=== PATIENT | female | born 1965 | race Caucasian/White ===

== ENCOUNTER 2021-06-18 21:47 | Emergency (ER) | payer MEDICARE, MEDICAID, SELFPAY ==
[2021-06-18 21:45] VITALS: BP 146/75; PULSE 100; RESP 20; TEMP 36.3; O2SAT 95
--- NOTE | 2021-06-18 22:08 | ED.GENADUL_ITS ---
Discharge Plan Disposition Patient Disposition: HOME Condition: Stable Discharge Details Clinical Impression: Major depression Primary Care Provider: Deya Cagle ED Provider: Rosa Enamorado Home Meds and New Rx's Prescriptions: Continued aspirin 81 mg Tablet 81 mg PO DAILY RF: 0 albuterol sulfate 90 mcg/actuation Hfa Aerosol Inhaler 2 puff INHALATION QID PRN PRNRF: 0 fluticasone propionate 110 mcg/actuation Hfa Aerosol Inhaler 1 puff INHALATION BID RF: 0 ferrous sulfate 324 mg (65 mg iron) Tablet,Delayed Release (Dr/Ec) PO DAILY RF: 0 fluticasone propionate 50 mcg/actuation Western,Suspension 1 spray INTRANASAL DAILY RF: 0 sennosides-docusate sodium [Stool Softener-Laxative] 8.6-50 mg Tablet 1 tab-cap PO QHS RF: 0 melatonin 3 mg Tablet 9 mg PO HS PRNRF: 0 magnesium chloride 64 mg Tablet Extended Release 128 mg PO TID RF: 0 simvastatin 40 mg Tablet 40 mg PO HS RF: 0 ascorbic acid (vitamin C) [Vitamin C] 500 mg Tablet PO DAILY RF: 0 ropinirole 2 mg Tablet 2 mg PO TID RF: 0 lidocaine 5 % Adhesive Patch,Medicated 2 patch TOPICAL DAILY RF: 0 lisinopril 5 mg Tablet 5 mg PO DAILY RF: 0 loratadine 10 mg Tablet 10 mg PO DAILY RF: 0 insulin lispro [Humalog KwikPen Insulin] 100 unit/mL Insulin Pen 1 sliding scale dose SUBCUT USEASDIRECTD RF: 0 venlafaxine 75 mg Tablet Extended Release 24hr 225 mg PO QAM RF: 0 Tresiba FlexTouch U-200 200 unit/mL (3 mL) Insulin Pen 110 unit SUBCUT Q12H RF: 0 Trulicity 1.5 mg/0.5 mL Pen Injector 1.5 mg SUBCUT QWEEK RF: 0 Aimovig Autoinjector 140 mg/mL Auto-Injector 140 mg SUBCUT QMONTH RF: 0 metformin 1,000 mg Tablet 1,000 mg PO BID RF: 0 acetaminophen [Tylenol] 325 mg Tablet 650 mg PO QID PRNRF: 0 polyethylene glycol 3350 17 gram Powder In Packet 17 g PO DAILY RF: 0 omeprazole 40 mg Capsule,Delayed Release(Dr/Ec) 40 mg PO DAILY RF: 0 prazosin 5 mg Capsule 5 mg PO HS RF: 0 methocarbamol 750 mg Tablet 750 mg PO QID RF: 0 benzonatate 100 mg Capsule 100 mg PO TID PRNRF: 0 mirtazapine 45 mg Tablet 45 mg PO QHS RF: 0 hydroxyzine HCl 25 mg Tablet 25 mg PO TID PRNRF: 0 lorazepam 1 mg Tablet 1 mg PO QHS RF: 0 lorazepam 1 mg Tablet 1 mg PO PRN MDD 3 PRN (Reason: Anxiety) RF: 0 rizatriptan 5 mg Tablet,Disintegrating 10 mg PO PRN PRN (Reason: Migraine Headache) RF: 0 ondansetron 4 mg Tablet,Disintegrating 4 mg PO Q6H PRNRF: 0 nabumetone 500 mg Tablet 500 mg PO BID RF: 0 pregabalin 50 mg Capsule 50 mg PO TID RF: 0 guaifenesin [Mucinex] 600 mg Tablet Extended Release 12hr PO BID RF: 0 metoprolol succinate 25 mg Capsule,Sprinkle,Er 24hr 25 mg PO DAILY RF: 0 Discharge Instructions Instructions: Depression (ED) Additional Instructions: Please return immediately to the emergency department if you develop any new or worsening symptoms, if your condition does not improve as expected, or if you become otherwise concerned. It is extremely important that you call soon as possible to make an appointment to be seen in follow-up for this visit by your primary care doctor. Referrals: Deya Cagle [Primary Care Provider] - Discharge Data Discharge Date/Time-TO BE ENTERED AT DEPARTURE: 06/21/21 16:12 Medical Decision Making <Ricardo Baldwin MD - Last Filed: 06/22/21 08:53> 56-year-old female presents via EMS from the [facility] in [facility]. She has a history of borderline personality disorder, PTSD for which she states she was admitted to [facility] for 4 months, and was subsequently discharged approximately 5 days ago to the [facility] facility. Patient reports a history of chronic suicidal ideation. This evening she wrapped a charging cord around her neck and a suicidal gesture. EMS reported that they were told [facility] refused the patient and that they were told she was to be brought to [facility] for mental health evaluation. When asked by myself during interview if she still had thoughts of harming her self the patient shrugged her shoulders. She admits she is had some chronic suicidal ideation. Medical screening examination performed including laboratory analysis. <Daryn Wheatley MD - Last Filed: 06/19/21 07:49> Patient sent in for mental health evaluation. See Dr. Baldwin's note for initial presentation and evaluation. Labs are ok and patient seen by mental health. Nursing in contact with patient's guardian and with director of the facility she was discharged to. Mental health needs to get records from [facility] to help sort things out. Patinet's meds reviewed and ordered. Will do fingersticks and sliding scale as needed. No issues overnight. Lab Data Lab results reviewed: Yes I reviewed the patient's lab results. <Jade Cisneros DO - Last Filed: 06/19/21 20:39> 0800 --please see previous provider's notes for initial presentation, exam, plan and course. Case endorsed to continue to monitor while awaiting final disposition. Report is that patient is medically cleared but had been refusing her insulin. Fingerstick glucose 343 this morning. Discussed with pharmacy and recommend insulin aspart sliding scale which has been ordered. Per pharmacy, pt has a h/o resistant hyperglycemia requiring higher doses of insulin. Will discuss with care management and mental health regarding disposition today. 1430 --discussed with wound care physician -- they are still waiting to hear from [facility] director. [facility] will potentially take patient back so we will hold in the ED at this time. Per mental health no plan for inpatient hospitalization. Pt has been cooperative and accepting insulin as directed. 1800 --discussed with Shelli with mental health - she was unable to speak with the director Abebe Jones at [facility] today. Plan is to hold patient in the ED at this time until mental health and care management able to speak with Abebe tomorrow to confirm a safety plan for patient to return to [facility]. Referrals have been placed for patient to be followed by [facility]. Medical Records Medical records reviewed: Yes I reviewed the patient's medical records. <Rosa Enamorado MD - Last Filed: 06/23/21 14:07> Pt signed out to me with plan for discharge to [facility] today. Mental health and seen and evaluated Pt. Pt stable without issue throughout the day. Walking to the bathroom several times with walker without issue. Pt accepted and discharged to [facility] per sign out plan. Medical Records Medical records reviewed: Yes I reviewed the patient's medical records. HPI <Ricardo Baldwin MD - Last Filed: 06/22/21 08:53> General Mode of arrival: ambulatory . Date/Time Provider Initiated Documentation: 06/18/21 21:51 . Limitations to Documentation: no limitations . Information obtained by: patient and EMS . History of Present Illness 56 year old F presents to the emergency department with the chief complaint of Suicidal ideation, chronic, suicide gesture tonight, described as moderate, Patient reports no radiation. Patient started experiencing this month(s) and it has been constant. No relieving factors improve symptom(s), No exacerbating fact ors reported . Patient notes other (No no neck pain, no bruising of the neck, no change to voice or swallowing). Patient did receive the following treatments prior to arrival, none Related Data Home Medications Medication Instructions Recorded Confirmed Aimovig Autoinjector 140 mg SUBCUT QMONTH 06/18/21 06/18/21 Tresiba FlexTouch U-200 110 unit SUBCUT Q12H 06/18/21 06/18/21 Trulicity 1.5 mg SUBCUT QWEEK 06/18/21 06/18/21 albuterol sulfate 2 puff INHALATION QID PRN PRN 06/18/21 06/18/21 ascorbic acid (vitamin C) [Vitamin mg PO DAILY 06/18/21 C] aspirin 81 mg PO DAILY 06/18/21 06/18/21 ferrous sulfate mg PO DAILY 06/18/21 fluticasone propionate 1 puff INHALATION BID 06/18/21 06/18/21 fluticasone propionate 1 spray INTRANASAL DAILY 06/18/21 06/18/21 insulin lispro [Humalog KwikPen 1 sliding scale dose SUBCUT 06/18/21 06/18/21 Insulin] USEASDIRECTD lidocaine 2 patch TOPICAL DAILY 06/18/21 06/18/21 lisinopril 5 mg PO DAILY 06/18/21 06/18/21 loratadine 10 mg PO DAILY 06/18/21 06/18/21 magnesium chloride 128 mg PO TID 06/18/21 06/18/21 melatonin 9 mg PO HS PRN 06/18/21 06/18/21 metformin 1,000 mg PO BID 06/18/21 06/18/21 ropinirole 2 mg PO TID 06/18/21 06/18/21 sennosides-docusate sodium [Stool 1 tab-cap PO QHS 06/18/21 06/18/21 Softener-Laxative] simvastatin 40 mg PO HS 06/18/21 06/18/21 venlafaxine 225 mg PO QAM 06/18/21 06/18/21 acetaminophen [Tylenol] 650 mg PO QID PRN 06/19/21 06/19/21 benzonatate 100 mg PO TID PRN 06/19/21 06/19/21 guaifenesin [Mucinex] mg PO BID 06/19/21 hydroxyzine HCl 25 mg PO TID PRN 06/19/21 06/19/21 lorazepam 1 mg PO PRN PRN MDD 3 06/19/21 06/19/21 lorazepam 1 mg PO QHS 06/19/21 06/19/21 methocarbamol 750 mg PO QID 06/19/21 06/19/21 metoprolol succinate 25 mg PO DAILY 06/19/21 06/19/21 mirtazapine 45 mg PO QHS 06/19/21 06/19/21 nabumetone 500 mg PO BID 06/19/21 06/19/21 omeprazole 40 mg PO DAILY 06/19/21 06/19/21 ondansetron 4 mg PO Q6H PRN 06/19/21 06/19/21 polyethylene glycol 3350 17 g PO DAILY 06/19/21 06/19/21 prazosin 5 mg PO HS 06/19/21 06/19/21 pregabalin 50 mg PO TID 06/19/21 06/19/21 rizatriptan 10 mg PO PRN PRN 06/19/21 06/19/21 Allergies Allergy/AdvReac Type Severity Reaction Status Date / Time No Known Drug Allergies Allergy Unverified 06/18/21 21:54 General Stated Complaint: GenMedical ANABELLE: 3 Review of Systems <Ricardo Baldwin MD - Last Filed: 06/22/21 08:53> Narrative: States she continues to feel depressed, no active plan to harm her self. States that she has been depressed with suicidal ideation for weeks to months. Reports being admitted to [facility] with discharge approximately 5 days ago to the [facility] facility from whence she came tonight. 8 systems reviewed, please see HPI. PFSH <Ricardo Baldwin MD - Last Filed: 06/22/21 08:53> All Active Problems (Updated 06/19/21 @ 20:39 by Jade Cisneros DO) Major depression (Chronic) Medical History (Updated 06/19/21 @ 20:39 by Jade Cisneros DO) Borderline personality disorder Depression Diabetes mellitus Disassociation disorder Post traumatic stress disorder (PTSD) Social History Smoking/Tobacco Use Status: Never Smoking risk assessment performed?: Yes Alcohol Intake: never Substance use type: does not use Additional Social history: pt is a new resident at [facility] in [place]; pt has a history of suicidal ideations and feels like no one wants her. She spent the last 4 [facility] at [facility] Exam <Ricardo Baldwin MD - Last Filed: 06/22/21 08:53> Narrative Exam Narrative: GEN: awake, alert. Pleasant, well groomed, interactive. HEAD: Normocephalic, atraumatic ENT: Mucous membranes moist, oropharynx unremarkable, External ear exam unremarkable EYES: PERRL, EOMI NECK: Full ROM, no CARMEN, no menigismus CHEST/RESP: Nontender, clear to auscultation bilateral, no wheeze/rhonchi/rales CARDIOVASCULAR: RRR, no murmur, rub krissy. 2+ Rad pulse bilateral ABDOMEN: Soft, nontender, no mass. +Bowel sounds EXT: Full ROM, no edema, no rash Neuro: Grossly normal neurologic exam, conversant, interactive. Psych: Speech fluent, thoughts congruent, affect flat Course <Ricardo Baldwin MD - Last Filed: 06/22/21 08:53> Vital Signs Vital signs: Vital Signs Temperature 36.3 C L 06/18/21 21:45 Pulse 100 H 06/18/21 21:45 Respiratory Rate 20 06/18/21 21:45 Blood Pressure 146/75 H 06/18/21 21:45 Pulse Oximetry 95 06/18/21 21:45 Temperature 36.3 C L 06/18/21 21:45 Temperature Source Skin 06/18/21 21:45 Pulse 100 H 06/18/21 21:45 Respiratory Rate 20 06/18/21 21:45 Blood Pressure 146/75 H 06/18/21 21:45 Blood Pressure Position Supine 06/18/21 21:45 Pulse Oximetry 95 06/18/21 21:45 Oxygen Delivery Method Room Air 06/18/21 21:45 Oxygen Flow Rate 0 06/18/21 21:45 Pain Level 6 06/18/21 21:45 Sign Out <Ricardo Baldwin MD - Last Filed: 06/22/21 08:53> Sign Out Data: Sign Out Comment: Medical screeing, Eval for SI Last updated by Ricardo Baldwin MD at 06/18/21 22:26 Sign Out Comment: pending re-eval by mental health Last updated by Daryn Wheatley MD at 06/19/21 07:53 Sign Out Comment: Patient has chronic resistant hyperglycemia but otherwise medically cleared. No plan for seeking inpatient hospitalization at this time. Will potentially go back to [facility] tomorrow once mental health and care management able to discuss with the director there tomorrow to establish a safety plan to return there. Last updated by Jade Cisneros DO at 06/19/21 19:35 Sign Out Comment: patient stable throughout the night. walking boot and walker given for chronic heel pain. Last updated by Trevor Anne DO at 06/20/21 07:42 Sign Out Comment: PLan for DC in AM, stable thru day shift Last updated by Ricardo Baldwin MD at 06/20/21 18:42 Sign Out Comment: Plan for discharge this morning. Stable. veterinary hospital shift lead. Last updated by Trevor Anne DO at 06/21/21 07:28
[2021-06-18 22:14] VITALS: RESP 16
[2021-06-18 22:29] LABS: Abs Immature Grans 0.06 10^3/uL (0.0-0.06); Absolute Basophil Count 0.04 10^3/uL (0.0-0.2); Absolute Eosinophil Count 0.18 10^3/uL (0.0-0.7); Absolute Lymphocyte Count 2.02 10^3/uL (1.2-3.4); Absolute Monocyte Count 0.74 10^3/uL (0.1-0.8); Absolute Neutrophil Count 5.06 10^3/uL (1.2-6.7); Basophils % 0.5; Eosinophils % 2.2; HCT 37.6 % (36.0-46.0); HGB 12.5 g/dL (11.2-15.7); Immature Grans % 0.7; Lymphocytes % 24.9; MCH 28.5 pg (27.0-33.0); MCHC 33.2 % (32.0-36.0); MCV 85.8 fL (80-95); MPV 8.6 fL (8.0-11.0); Monocytes % 9.1; Neutrophils % 62.6; Nucleated RBC 0 %; Platelet Count 269 10^3/uL (130-400); RBC 4.38 10^6/uL (3.93-5.22); RDW-SD 40.1 fL
[2021-06-18 22:33] LABS: Source Nasal/Nares
[2021-06-18 22:49] LABS: ALT 27 U/L (14-59); AST 18 U/L (15-37); Albumin 3.6 g/dL (3.4-5.0); Alkaline Phosphatase 117 U/L (46-116); Anion Gap 8.4 mmol/L (3-11); BUN 22 mg/dL (7-18); Bilirubin, Total 0.2 mg/dL (0.2-1.0); CO2 27.6 mmol/L (21.0-32.0); Calcium 9.2 mg/dL (8.5-10.1); Chloride 98 mmol/L (98-107); Estimated GFR 57.78 (mL/min/1.73m2); Glucose 248 mg/dL (74-106); Potassium 3.7 mmol/L (3.5-5.1); Sodium 134 mmol/L (136-145); TSH (W/Ref FT4) 0.91 uIU/mL (0.36-3.74); Total Protein 7.6 g/dL (6.4-8.2)
[2021-06-18 22:50] LABS: ETHANOL BLOOD < 3.0 mg/dL (<10)
[2021-06-18 22:52] LABS: Acetaminophen < 2 ug/mL (10-30); Salicylate < 2.8 mg/dL (<2.8)
--- NOTE | 2021-06-19 00:25 | NUR.NOTE ---
Nursing Note: Pt arrives via EMS after being told they could not go to [facility] (per EMS) upset and quiet Pt is slowly opening up. This RN called [facility] to get report on pt since we had not hand off. Pt Therapeutic Recreation Leader reports that pt was refusing insulin and noncompliant with cares today and that she then locked herself in room and stated that she wants to kill herself. Further reports that pt is accusing staff also of not giving meds, which is untrue. Called [facility] Security Administrator Abebe ([phone]), He reports today has been stressful. At 4 pm she refused to take her insulin and check her blood sugar. They called 911 and EMS came. Pt still refused cares. They then called guardian who gave consent for blood sugar and insulin. Pt was then upset and found a pair of scissors from newly dropped off belongings from previous facility and locked herself in room. Security Administrator then broke down door to get in room and get scissors away from pt. Abebe states they are concerned for pts mental state, suicidal ideations and refusing meds. He is willing to take her back to their facility, BUT there have to be plans and services in place to help handle these behaviors. Pt's legal guardian Isha Garcia called to advise pt was here and give consent for treatment. This nurse also talked to her at length. Isha reports that pt's refusing to take insulin is her way of gaining control of situations when she is scared or feels threatened. Isha reports that pt displays warning signs for increasing agitation and behavior concerns - when she picks at her skin, she appears to talk to herself or looks around the room. (All of these behaviors pt has demonstrated since arrival). Pt also has a history of Disassociation if she cannot get behaviors in control that can last from a few seconds to days. This nurse spoke with Ricarda from Mental Health to tell her of above conversations. Ricarda will talk with guardian tomorrow and then also work with Care Management and Abebe to coordinate cares and services pt would need to return to [facility].
--- NOTE | 2021-06-19 00:32 | PDOC.MHCN_ITS ---
Date of service: 06/19/21 Time of Service: 00:32 Mental Health Crisis Note Presenting Issue How did you arrive at the ED and why did you come: Client arrived at [facility] ED via [facility] after [facility] refused to take client. Client presents with persistent SI, but states that she experiences this everyday. Precipitating Factors Client states that she is currently having SI, denies HI. Disposition BEHAVIOR: Client is laying down on hospital bed with paper hospital top on and shorts. She is a full figure woman with mahan hair. At first interaction she appears to be guarded, but opens up to this functional tester typewriters throughout assessment. She states: I don't care how much family or friends I have that care about me I think they would all be better off without me, I don't belong anywhere. She is tearful throughout assessment. EYE CONTACT: Client makes minimal eye contact as she is having cramping in both of her feet, but when answering some questions she attempts to look at this functional tester typewriters. MOOD: Client mood appears depressed and hopeless. AFFECT: Flat Affect APPETITE: Client states that she has been overeating, although she did not eat dinner tonight. SLEEP(trouble falling/staying asleep: Client states that she has not been sleeping, she is averaging about 4 hours of interrupted sleep nightly. She states that she did not get any sleep last night. Plan Client will remain at [facility] ED tonight. Client will be re-screened by [facility] in the morning and a plan for her to return to [facility] will be formulated with [facility] and care management. Client has a guardian that needs to be called to fill out intake paperwork in the morning and referrals were be made for therapy, case management, and a psychiatrist through [facility]. Signature Clinician's Name/Title: Ricarda Ga, [facility] Emergency Clinician
[2021-06-19 00:59] LABS: Bilirubin Negative (Negative); Blood Negative (Negative); Clarity Cloudy (Clear); Glucose 500 mg/dL (Negative); Ketones Negative (Negative); Leukocyte Esterase Trace (Negative); Nitrite Negative (Negative); Specific Gravity 1.025 (1.005-1.025); Urobilinogen 0.2 EU/dL (Up TO 0.2)
[2021-06-19] MEDS: Prazosin 5 MG CAP PO ×2 (01:00→21:59)
[2021-06-19] MEDS: LORazepam 1 MG TAB PO ×3 (01:00→15:48)
[2021-06-19] MEDS: Melatonin 3 MG TAB 9 MG PO ×2 (01:00→21:59)
[2021-06-19] MEDS: Mirtazapine 15 MG TAB 45 MG PO ×2 (01:01→22:00)
[2021-06-19 01:07] LABS: Bacteria Packed HPF (Negative); C & S Indicated? Yes; Casts Negative LPF (Negative); Crystals Negative HPF (Negative); Epithelial Cells Few HPF (Negative); Mucus Negative (Negative); WBC 20-50 HPF (0-5)
[2021-06-19 01:12] LABS: *AMPHETAMINES SCREEN URINE Negative (Negative); *BARBITURATES SCREEN URINE Negative (Negative); *BENZODIAZEPINES SCREEN URINE Negative (Negative); Cannabinoids THC Negative (Negative); Cocaine Screen,Urine Negative (Negative); METHADONE URINE SCREEN Negative (Negative); OPIATES URINE SCREEN Negative (Negative); Tricyclic Antidepressants Negative (Negative)
[2021-06-19] MEDS: Fosfomycin Tromethamine 3 GM PACKET PO (02:01)
[2021-06-19] MEDS: rOPINIRole 0.5 MG TAB 2 MG PO (03:10)
[2021-06-19] MEDS: Nabumetone 500 MG TAB PO ×2 (03:10→19:51)
[2021-06-19] MEDS: Pregabalin 50 MG CAP PO ×3 (03:10→19:51)
[2021-06-19] MEDS: Methocarbamol 750 MG TAB PO ×4 (03:11→19:51)
[2021-06-19 07:09] VITALS: BP 114/76; PULSE 103; TEMP 36.6; O2SAT 93
[2021-06-19] MEDS: Omeprazole 20 MG CAPCR 40 MG PO (07:20)
[2021-06-19] MEDS: metFORMIN 500 MG TAB 1000 MG PO ×2 (07:20→16:35)
[2021-06-19] MEDS: Lisinopril 5 MG TAB PO (08:20)
[2021-06-19] MEDS: Aspirin E.C. 81 MG TABEC PO (08:20)
[2021-06-19] MEDS: Metoprolol CR 25 MG TABCR PO (08:20)
[2021-06-19] MEDS: Venlafaxine 150 MG CAPCR PO (08:21)
[2021-06-19] MEDS: Insulin Aspart 300 UNITS/3 ML PEN SC ×4 (08:53→21:56)
[2021-06-19] MEDS: rOPINIRole 1 MG TAB 2 MG PO ×3 (09:20→19:51)
[2021-06-19 10:03] LABS: COVID-19 PCR Negative (Negative)
--- NOTE | 2021-06-19 16:50 | CMPROGNOTE_ITS ---
- If Service Date Differs Date of service: 06/19/21 Time of Service: 16:50 Care Management Progress Note Josy was brought to [facility] ED from [facility] because of suicidal ideation. She had been discharged to [facility] from [facility] about 5 days ago after a 4 month admission for similar complaints/thoughts. Per Josy and per her mental health providers in the community, this is her baseline. She chronically has thoughts of suicide but has no plan. After evaluation by [facility] crisis screener Shelli today, the decision was made to have her return to [facility] on a Safety Plan. The director was unavailable today but efforts continue to reach him and to have Josy return to [facility]. If this is not possible today, it is likely she will return tomorrow. - Status Status: Interim - Reason for Wait Reason for Wait: Community Placement
[2021-06-19] MEDS: Simvastatin 40 MG TAB PO (19:52)
[2021-06-19 21:05] VITALS: BP 144/88; PULSE 93; RESP 18; TEMP 37; O2SAT 96
[2021-06-20] MEDS: Acetaminophen 500 MG TAB 1000 MG PO ×2 (02:00→20:38)
[2021-06-20] MEDS: LORazepam 1 MG TAB PO (02:00)
[2021-06-20] MEDS: Omeprazole 20 MG CAPCR 40 MG PO (08:09)
[2021-06-20] MEDS: metFORMIN 500 MG TAB 1000 MG PO ×2 (08:10→17:11)
[2021-06-20] MEDS: Aspirin E.C. 81 MG TABEC PO (08:10)
[2021-06-20] MEDS: Lisinopril 5 MG TAB PO (08:10)
[2021-06-20] MEDS: Venlafaxine 150 MG CAPCR PO (08:11)
[2021-06-20] MEDS: rOPINIRole 1 MG TAB 2 MG PO ×3 (08:11→20:34)
[2021-06-20] MEDS: Pregabalin 50 MG CAP PO ×3 (08:12→20:42)
[2021-06-20] MEDS: Metoprolol CR 25 MG TABCR PO (08:12)
[2021-06-20] MEDS: Methocarbamol 750 MG TAB PO ×4 (08:12→20:35)
[2021-06-20] MEDS: Insulin Aspart 300 UNITS/3 ML PEN SC ×4 (08:14→22:34)
[2021-06-20 08:33] VITALS: BP 107/73; PULSE 101; TEMP 36.5; O2SAT 92
[2021-06-20] MEDS: Nabumetone 500 MG TAB PO ×2 (10:20→20:38)
[2021-06-20] MEDS: Polyethylene Glycol 3350 17 GM PACKET PO (12:47)
--- NOTE | 2021-06-20 17:20 | PDOC.CMSAFED ---
- If Service Date Differs Date of service: 06/20/21 Time of Service: 17:20 Care Management Safety Plan Status: Interim - Reason for Wait Reason for Wait: Community Placement Josy was brought to the ED by EMS from [facility]. She had been making suicidal comments and was found with a cord around her neck. 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 She reportedly was discharged from [facility] after a 4 month psychiatric hospitalization about a week ago and was sent to [facility]. Per her history and information from [facility], Josy is chronically suicidal and is at her baseline. The plan is for her to return to [facility] tomorrow (Monday06/21/21) when SOFTWARE PUBLISHER services can be established for her at [facility]. CM facilitated an interdepartmental huddle with [facility] screener for safety planning considerations and met with patient to review [facility] policy and safety plan, establish individual wishes for treatment and maintain patient rights. A huddle was conducted around 12:30 with Jese, Nursing lunchroom food service supervisor, Micheline GOOD, Dr. Baldwin and NATALYA Cordon. In the interim; please note safety plan below to guide patient care while awaiting transfer back to [facility]: SAFETY PLAN: 1. Will remain on suicide precautions and in paper clothes. 2. Will remain in room under direct supervision of one-on-one staff at all times provided by ANIKA, DATA CENTER MANAGER sample taker operator. 3. May have paper cups, plates, finger foods as well as a cardboard spoon with which to eat meals. 4. Follow [facility] Management of the Admitted Behavioral Health Patient policy. 5. Personal care: May shower with supervision at nursing discretion. 6. Bathroom privileges: with escort in ED. 6. May wear necklace.No personal belongings at this time; per RN discretion. 7. No visitors at this time. 8. Phone contact limited to guardian who is also a friend. 9. Activities: Music tablet per RN discretion. May also have soft items such as books, coloring materials etc at nursing discretion. 10. Due to VOLUNTARY status, if patient wishes to leave [facility], staff will contact [facility] Crisis Screener ([phone]) and On-Call Cam Milling Machine Operator ([phone]) as soon as possible. In the event of elopement, notify [facility] Police ([phone]). If deemed appropriate for inpatient psychiatric care, safety plan will be established with patient, and care team, to adhere to patient goals, identify restrictions based on behavioral status, address nutrition, and determine allowed personal belongings, tools for hygiene and personal care. As well plan will determine level of activity including ambulation, level of supervision, visitors, and determine privileges based on level of acuity, behaviors and level of engagement by patient.
--- NOTE | 2021-06-20 18:48 | NUR.NOTE ---
Nursing Note: Report given to Sruthi GOOD
[2021-06-20] MEDS: Simvastatin 40 MG TAB PO (20:39)
[2021-06-20 20:55] VITALS: BP 151/81; PULSE 88; RESP 18; TEMP 36.9; O2SAT 93
[2021-06-20] MEDS: Mirtazapine 15 MG TAB 45 MG PO (22:35)
[2021-06-20] MEDS: Melatonin 3 MG TAB 9 MG PO (22:35)
[2021-06-20] MEDS: Prazosin 5 MG CAP PO (22:36)
[2021-06-21] MEDS: Polyethylene Glycol 3350 17 GM PACKET PO (08:18)
[2021-06-21] MEDS: Omeprazole 20 MG CAPCR 40 MG PO (08:19)
[2021-06-21] MEDS: Aspirin E.C. 81 MG TABEC PO (08:19)
[2021-06-21] MEDS: Pregabalin 50 MG CAP PO (08:19)
[2021-06-21] MEDS: Methocarbamol 750 MG TAB PO ×3 (08:19→15:56)
[2021-06-21] MEDS: metFORMIN 500 MG TAB 1000 MG PO (08:19)
[2021-06-21] MEDS: Lisinopril 5 MG TAB PO (08:19)
[2021-06-21] MEDS: Nabumetone 500 MG TAB PO (08:20)
[2021-06-21] MEDS: Venlafaxine 150 MG CAPCR PO (08:20)
[2021-06-21] MEDS: rOPINIRole 1 MG TAB 2 MG PO (08:20)
[2021-06-21] MEDS: Insulin Aspart 300 UNITS/3 ML PEN SC ×2 (08:20→12:30)
[2021-06-21] MEDS: Metoprolol CR 25 MG TABCR PO (08:20)
[2021-06-21 08:50] VITALS: BP 135/92; PULSE 91; TEMP 36.5; O2SAT 95
[2021-06-21] MEDS: Insulin Glargine 100 UNITS/ML UNIT 88 UNITS SC (10:21)
[2021-06-21] MEDS: LORazepam 1 MG TAB PO (12:51)
--- NOTE | 2021-06-21 15:45 | CMPROGNOTE_ITS ---
- If Service Date Differs Date of service: 06/21/21 Time of Service: 15:45 Care Management Progress Note DISCHARGE PLAN: Josy is cleared by [facility] CUSTOM DECORATING CONSULTANT Program to return to [facility]. She will follow up with her PCP, [facility] and plan of care as directed. She is transported to [facility] by [facility].
--- NOTE | 2021-06-21 15:45 | PDOC.ERCMPRO ---
- If Service Date Differs Date of service: 06/21/21 Time of Service: 15:45 Care Management Progress Note DISCHARGE PLAN: Josy is cleared by [facility] KNITTING SUPERVISOR Program to return to [facility]. She will follow up with her PCP, [facility] and plan of care as directed. She is transported to [facility] by [facility].
--- NOTE | 2021-06-21 16:02 | NUR.NOTE ---
Nursing Note:Pt dressed, medicated per EMAR, transportation arranged for return to [facility], hemodialysis patient care specialist in to speak w/pt as requested by pt.
[2021-06-21 16:03] VITALS: BP 118/78; PULSE 101; TEMP 36.1; O2SAT 94
== END 2021-06-21 16:12 | disposition home or self-care (01) ==
PROVIDERS: Emergency Medicine; Emergency Provider Student in an Organized Health Care Education/Training Program; PCP Student in an Organized Health Care Education/Training Program
DX: F32.A Depression, unspecified (principal); E11.9 Type 2 diabetes mellitus without complications; R45.851 Suicidal ideations; Z79.899 Other long term (current) drug therapy
CPT/HCPCS: 36415; 36416; 80053; 80307; 82962; 87077; 87635; 99284; 99285; 80320; 80329; 81003; 81015; 84443; 85025; 87086; 87186; J1815; J3490

== ENCOUNTER 2021-09-05 18:51 | Emergency (ER) | payer MEDICARE, MEDICAID, SELFPAY ==
[2021-09-05 18:34] VITALS: BP 126/81; PULSE 99; RESP 16; TEMP 36.2; O2SAT 95
--- NOTE | 2021-09-05 18:50 | ED.GENADUL_ITS ---
Discharge Plan Disposition Patient Disposition: OTHER Condition: Improving Discharge Details Clinical Impression: Chronic depression, Borderline personality disorder Primary Care Provider: Deya Cagle ED Provider: Ricardo Baldwin Home Meds and New Rx's Prescriptions: Continued aspirin 81 mg Tablet 81 mg PO DAILY 0RF albuterol sulfate 90 mcg/actuation Hfa Aerosol Inhaler 2 puff INHALATION QID PRN PRN0RF fluticasone propionate 110 mcg/actuation Hfa Aerosol Inhaler 1 puff INHALATION BID 0RF ferrous sulfate 324 mg (65 mg iron) Tablet,Delayed Release (Dr/Ec) 324 mg PO DAILY 0RF fluticasone propionate 50 mcg/actuation [place],Suspension 1 spray INTRANASAL DAILY 0RF melatonin 3 mg Tablet 9 mg PO HS PRN0RF magnesium chloride 64 mg Tablet Extended Release 128 mg PO TID 0RF ascorbic acid (vitamin C) [Vitamin C] 500 mg Tablet 500 mg PO DAILY 0RF ropinirole 2 mg Tablet 2 mg PO TID 0RF lidocaine 5 % Adhesive Patch,Medicated 2 patch TOPICAL DAILY 0RF lisinopril 5 mg Tablet 5 mg PO DAILY 0RF loratadine 10 mg Tablet 10 mg PO DAILY 0RF venlafaxine 75 mg Tablet Extended Release 24hr 225 mg PO QAM 0RF Trulicity 1.5 mg/0.5 mL Pen Injector 1.5 mg SUBCUT QWEEK 0RF Aimovig Autoinjector 140 mg/mL Auto-Injector 140 mg SUBCUT QMONTH 0RF metformin 1,000 mg Tablet 1,000 mg PO BID 0RF acetaminophen [Tylenol] 325 mg Tablet 650 mg PO QID PRN0RF polyethylene glycol 3350 17 gram Powder In Packet 17 g PO DAILY 0RF omeprazole 40 mg Capsule,Delayed Release(Dr/Ec) 40 mg PO DAILY 0RF methocarbamol 750 mg Tablet 750 mg PO QID PRN0RF mirtazapine 45 mg Tablet 45 mg PO QHS 0RF hydroxyzine HCl 25 mg Tablet 25 mg PO TID PRN0RF lorazepam 1 mg Tablet 1 mg PO QHS 0RF lorazepam 1 mg Tablet 1 mg PO BID PRN MDD 3 PRN (Reason: Anxiety) 0RF ondansetron 4 mg Tablet,Disintegrating 4 mg PO Q6H PRN0RF nabumetone 500 mg Tablet 500 mg PO BID 0RF pregabalin 50 mg Capsule 50 mg PO TID 0RF guaifenesin [Mucinex] 600 mg Tablet Extended Release 12hr 600 mg PO BID 0RF metoprolol succinate 25 mg Capsule,Sprinkle,Er 24hr 25 mg PO DAILY 0RF atorvastatin 40 mg Tablet 40 mg PO DAILY 0RF sennosides-docusate sodium [Senexon-S] 8.6-50 mg Tablet 1 tab PO DAILY 0RF prazosin 5 mg Capsule 5 mg PO QHS 0RF Humulin R U-500 (Conc) Kwikpen 500 unit/mL (3 mL) Insulin Pen 60 unit SUBCUT QACLUNCH 0RF Rx Instructions: 30 min before lunch Humulin R U-500 (Conc) Insulin 500 unit/mL Solution 65 unit subcut QACDINNER 0RF Rx Instructions: 30 min before juliane diclofenac sodium 1 % Gel 2 g TOPICAL QID PRN (Reason: Pain) 0RF Rx Instructions: apply to single elbow, wrist or hand; for hand includes palm/fingers/back of hand insulin regular hum U-500 conc 500 unit/mL (3 mL) Insulin Pen 80 unit SUBCUT QACBREAK 0RF rizatriptan 10 mg Tablet 0 mg PO .COMPLEX 0RF Rx Instructions: take 1 tab at onset of headache; if no relief may repeat 1 tab after at least 2 hrs; limit to 2 days/week Discharge Instructions Additional Instructions: Your case was discussed with your ACTUARIAL TECHNICIAN team by our care managers. Your case was discussed with administration from the [facility] by our care managers. You are medically stable for discharge from the emergency department. Continue your routine medications. Please follow-up with your ACTUARIAL TECHNICIAN team tomorrow. Discharge Data Discharge Date/Time-TO BE ENTERED AT DEPARTURE: 09/06/21 18:13 Medical Decision Making 56-year-old female with medical history of borderline personality disorder, depression, diabetes mellitus insulin-dependent, association disorder and PTSD presents to the ER with a chief complaint of suicidal ideation and gestures. Patient was at [facility] prior to arrival with reports that she attempted to wrap a towel around her neck, cut her right wrist with a fork katlyn. Upon arrival patient states to me that I was trying to reopen an old wound that I had here. She does state she broke off a piece of a plastic fork and c ut myself Patient does endorse any intent to harm herself. Only complains of pain in her right wrist. There is a bandage in place upon arrival bleeding is controlled. She has no ligation jsoé noted on her neck. No chest abdomen back pain. She does report some vaginal itching and discharge. She reports that this is chronic but has returned probably due to my diabetes . Per EMS patient calm and cooperative in route, 20-gauge IV left AC started by EMS blood was drawn. She did receive a small amount of fluids prior to arrival IV. BGL prior to arrival was 343. Psychiatric evaluation mental health orders placed. Patient's room is in line of sight of the nurses station. Patient placed in paper scrubs. CBC within normal limits, CMP shows anion gap 12.0, glucose 290, alk phos 119 TSH within normal limits, urinalysis shows trace ketones, positive nitrite trace leukocyte 20-50 WBCs, moderate epithelial, many bacteria, 500 glucose culture is pending at this time. Salicylate less than 2.8 urine drug screen negative, acetaminophen less than 2 ethyl alcohol less than 3.0. Cephalexin 500 mg ordered p.o. twice daily. Will order patient daily p.m. medications 2125: Spoke with Hortencia with [facility] discussed patient case with her. She will set up zoom telehealth meeting. Discussed plan with Hortencia ACTUARIAL TECHNICIAN provider who will be seeking inpatient voluntary psychiatric placement. 2308: Care is to be handed off to ER attending Gil Anne DO pending observation and voluntary psych placement. 09/06/21 0730, Rosa Enamorado: Patient signed out to me at time of shift change, pending voluntary inpatient placement. Patient had elevated blood sugar in the morning, patient's home insulin regimen ordered, BMP ordered. No DKA. Blood sugar improved with insulin. Patient without complaint, no other issues during shift. Patient signed out to Dr. Baldwin at time of shift change with placement pending. Addendum: August 06 4:50 PM. Discussed with care management. Patient has long standing suicidal ideation for which she is followed by community resource team based out [facility]. Case discussed with her ACTUARIAL TECHNICIAN agent Estefania Weiner as well as with the [facility] facility. Patient has been cleared for return back to [facility]. She will need to seek further outpatient psych care in her own catchment area. Medical Records Medical records reviewed: Yes I reviewed the patient's medical records. HPI General Mode of arrival: EMS . Date/Time Provider Initiated Documentation: 09/05/21 19:34 . Limitations to Documentation: no limitations . Information obtained by: patient, RN/MD ([facility] Staff Report ), EMS, RN notes reviewed and old records reviewed . HPI Narrative: 56-year-old female with medical history of borderline personality disorder, depression, diabetes mellitus insulin-dependent, association disorder and PTSD presents to the ER with a chief complaint of suicidal ideation and gestures. Patient was at [facility] prior to arrival with reports that she attempted to wrap a towel around her neck, cut her right wrist with a fork katlyn. Upon arrival patient states to me that I was trying to reopen an old wound that I had here. Patient does endorse any intent to harm herself. Only complains of pain in her right wrist. There is a bandage in place upon arrival bleeding is controlled. She has no ligation josé noted on her neck. No chest abdomen back pain. She does report some vaginal itching and discharge. She reports that this is chronic but has returned probably due to my diabetes . Per EMS patient calm and cooperative in route, 20-gauge IV left AC started by EMS blood was drawn. She did receive a small amount of fluids prior to arrival IV. BGL prior to arrival was 343. Related Data Home Medications Medication Instructions Recorded Confirmed albuterol sulfate 90 mcg/actuation 2 puff INHALATION QID PRN PRN 06/18/21 09/05/21 aerosol inhaler ascorbic acid (vitamin C) 500 mg 500 mg PO DAILY 06/18/21 09/05/21 tablet (Vitamin C) aspirin 81 mg tablet 81 mg PO DAILY 06/18/21 09/05/21 dulaglutide 1.5 mg/0.5 mL 1.5 mg SUBCUT QWEEK 06/18/21 09/05/21 subcutaneous pen injector (Trulicity) erenumab-aooe 140 mg/mL 140 mg SUBCUT QMONTH 06/18/21 09/05/21 subcutaneous auto-injector (Aimovig Autoinjector) ferrous sulfate 324 mg (65 mg 324 mg PO DAILY 06/18/21 09/05/21 iron) tablet,delayed release fluticasone propionate 110 1 puff INHALATION BID 06/18/21 09/05/21 mcg/actuation HFA aerosol inhaler fluticasone propionate 50 1 spray INTRANASAL DAILY 06/18/21 09/05/21 mcg/actuation nasal spray,suspension lidocaine 5 % topical patch 2 patch TOPICAL DAILY 06/18/21 09/05/21 lisinopril 5 mg tablet 5 mg PO DAILY 06/18/21 09/05/21 loratadine 10 mg tablet 10 mg PO DAILY 06/18/21 09/05/21 magnesium chloride 64 mg 128 mg PO TID 06/18/21 09/05/21 tablet,extended release melatonin 3 mg tablet 9 mg PO HS PRN 06/18/21 09/05/21 metformin 1,000 mg tablet 1,000 mg PO BID 06/18/21 09/05/21 ropinirole 2 mg tablet 2 mg PO TID 06/18/21 09/05/21 venlafaxine 75 mg tablet,extended 225 mg PO QAM 06/18/21 09/05/21 release 24 hr acetaminophen 325 mg tablet 650 mg PO QID PRN 06/19/21 09/05/21 (Tylenol) guaifenesin 600 mg tablet, 600 mg PO BID 06/19/21 09/05/21 extended release 12 hr (Mucinex) hydroxyzine HCl 25 mg tablet 25 mg PO TID PRN 06/19/21 09/05/21 lorazepam 1 mg tablet 1 mg PO BID PRN PRN MDD 3 06/19/21 09/06/21 lorazepam 1 mg tablet 1 mg PO QHS 06/19/21 09/05/21 methocarbamol 750 mg tablet 750 mg PO QID PRN 06/19/21 09/05/21 metoprolol succinate 25 mg capsule 25 mg PO DAILY 06/19/21 09/05/21 sprinkle, ext. release 24 hr mirtazapine 45 mg tablet 45 mg PO QHS 06/19/21 09/05/21 nabumetone 500 mg tablet 500 mg PO BID 06/19/21 09/05/21 omeprazole 40 mg capsule,delayed 40 mg PO DAILY 06/19/21 09/05/21 release ondansetron 4 mg disintegrating 4 mg PO Q6H PRN 06/19/21 09/05/21 tablet polyethylene glycol 3350 17 gram 17 g PO DAILY 06/19/21 09/05/21 oral powder packet pregabalin 50 mg capsule 50 mg PO TID 06/19/21 09/05/21 atorvastatin 40 mg tablet 40 mg PO DAILY 09/05/21 09/05/21 diclofenac sodium 1 % topical gel 2 g TOPICAL QID PRN 09/05/21 09/05/21 insulin regular hum U-500 conc 60 unit SUBCUT QACLUNCH 09/05/21 09/06/21 (Humulin R U-500 (Conc) Insulin Kwikpen) insulin regular hum U-500 conc 500 65 unit SUBCUT QACDINNER 09/05/21 09/06/21 unit/mL subcutaneous soln (Humulin R U-500 (Concentrated) Insulin) prazosin 5 mg capsule 5 mg PO QHS 09/05/21 09/05/21 sennosides 8.6 mg-docusate sodium 1 tab PO DAILY 09/05/21 09/05/21 50 mg tablet (Senexon-S) insulin regular hum U-500 conc 80 unit SUBCUT QACBREAK 09/06/21 09/06/21 rizatriptan 10 mg tablet 0 mg PO .COMPLEX 09/06/21 09/06/21 Allergies Allergy/AdvReac Type Severity Reaction Status Date / Time No Known Drug Allergies Allergy Unverified 06/18/21 21:54 General Stated Complaint: PsychEval ANABELLE: 2 Review of Systems All systems reviewed & are unremarkable except as noted in HPI and below Musculoskeletal Musculoskeletal: Reports as per HPI Integumentary/Breasts Skin/Breast: Reports as per HPI and Reports wounds (Right wrist) Psychiatric Psychiatric: Reports as per HPI, Reports hopelessness, Reports mood swings, Reports suicidal ideation and Reports other (Patient states she has episodes of dissociative disorder. ) PFSH All Active Problems (Updated 09/06/21 @ 16:53 by Ricardo Baldwin MD) Chronic depression (Acute) Borderline personality disorder (Acute) Medical History Borderline personality disorder Depression Diabetes mellitus Disassociation disorder Post traumatic stress disorder (PTSD) Social History Smoking/Tobacco Use Status: Never Smoking risk assessment performed?: Yes Alcohol Intake: never Substance use type: does not use Additional Social history: pt is a new resident at [facility] in [place]; pt has a history of suicidal ideations and feels like no one wants her. She spent the last 4 [place] at [facility] Exam Narrative Exam Narrative: Constitutional: Alert and oriented x3. Appears stated age. Obese body habitus. Head: Normocephalic, no trauma. Eyes: Pupils PERRL, Red reflex noted, EOM's intact. Eyelids symmetrical without lesions, discharge, or swelling. ENT: Bilateral TM's WNL, External ear normal to inspection, no mastoid TTP, swelling, or erythema, Nasal turbinates WNL, no nasal discharge. Normal dentition, Posterior pharynx WNL, no exudate. Chest: RRR, Normal S1, S2, distal pulses intact. Resp: Lungs clear to auscultation bilaterally, no wheezes, rales, or rhonchi. Abdomen: Soft, non-distended, Normoactive bowel sounds all 4 quads. Musculoskeletal: Normal gait, 5/5 strength to all four extremities. Skin: Capillary refill less than 2 sec. acute on chronic laceration noted to her right inner wrist measuring approximate 4 cm in length, no bleeding noted on initial exam. Laceration was treated with bacitracin and a Band-Aid. No ligation josé noted to her neck. no questionable bruises or other wounds noted on exam. Neurologic: Cranial nerves II-XII intact. Alert and oriented x 3. Motor: No deficits noted. Sensory: Intact bilaterally all 4 extremities. Reflexes: DTR's intact bilaterally.. Hematologic/Lymphatic: No ecchymosis, no lymphadenopathy. Psych Appearance: well kempt Speech and Movement: speech and movement normal Affect: sad and blunted Attitude: cooperative Thought Process: normal Thought Content: compulsions and suicidality (Wrapped towel around her neck, attempted to cut wrist,) Insight: limited Judgment: limited Course Vital Signs Vital signs: Vital Signs Temperature 36.2 C L 09/05/21 18:34 Pulse 99 H 09/05/21 18:34 Respiratory Rate 16 09/05/21 18:34 Blood Pressure 126/81 09/05/21 18:34 Pulse Oximetry 95 09/05/21 18:34 Temperature 36.2 C L 09/05/21 18:34 Temperature Source Skin 09/05/21 18:34 Pulse 99 H 09/05/21 18:34 Respiratory Rate 16 09/05/21 18:34 Blood Pressure 126/81 09/05/21 18:34 Blood Pressure Position Sitting 09/05/21 18:34 Pulse Oximetry 95 09/05/21 18:34 Oxygen Delivery Method Room Air 09/05/21 18:34 Oxygen Flow Rate 0 09/05/21 18:34 Pain Level 6 09/05/21 18:34 Sign Out Sign Out Data: Sign Out Comment: Suicidal gestures. Hx of Borderline Personality disorder, Disassociative disorder, PTSD, IDDM from [facility], awaiting voluntary placement. Re-opened right wrist wound, Reportedly wrapped a towel around neck, Has remained calm and cooperative. ACTUARIAL TECHNICIAN patient, sees [facility]. Last updated by Candy Valdes at 09/05/21 22:58 Sign Out Comment: Suicidal ideations, personality disorder, stable throughout the night. No interventions needed. Pending reassessment by mental health. Last updated by Trevor Anne DO at 09/06/21 06:24 Sign Out Comment: Patient signed out to Dr. Baldwin at time of shift change with voluntary placement pending. Last updated by Rosa Enamorado MD at 09/06/21 15:41
[2021-09-05 19:36] LABS: Abs Immature Grans 0.04 10^3/uL (0.0-0.06); Absolute Basophil Count 0.04 10^3/uL (0.0-0.2); Absolute Eosinophil Count 0.15 10^3/uL (0.0-0.7); Absolute Lymphocyte Count 1.47 10^3/uL (1.2-3.4); Absolute Monocyte Count 0.75 10^3/uL (0.1-0.8); Absolute Neutrophil Count 5.12 10^3/uL (1.2-6.7); Basophils % 0.5; HCT 40.1 % (36.0-46.0); Immature Grans % 0.5; Lymphocytes % 19.4; MCH 28.2 pg (27.0-33.0); MCHC 32.4 % (32.0-36.0); MPV 9.5 fL (8.0-11.0); Monocytes % 9.9; Neutrophils % 67.7; Nucleated RBC 0 %; Platelet Count 252 10^3/uL (130-400); RBC 4.61 10^6/uL (3.93-5.22); RDW 13.7 % (11.7-14.6); RDW-SD 43.8 fL; WBC 7.57 10^3/uL (4.4-10.8)
[2021-09-05 19:56] LABS: Bilirubin Negative (Negative); Blood Negative (Negative); Clarity Sl Cloudy (Clear); Glucose 500 mg/dL (Negative); Ketones Trace mg/dL (Negative); Leukocyte Esterase Trace (Negative); Nitrite Positive (Negative); Specific Gravity >= 1.030 (1.005-1.025); Urobilinogen 0.2 EU/dL (Up TO 0.2)
[2021-09-05 19:58] LABS: ALT 47 U/L (14-59); AST 32 U/L (15-37); Albumin 3.5 g/dL (3.4-5.0); Alkaline Phosphatase 119 U/L (46-116); BUN 15 mg/dL (7-18); Bilirubin, Total 0.3 mg/dL (0.2-1.0); CREATININE 0.9 mg/dL (0.55-1.02); Calcium 9.1 mg/dL (8.5-10.1); Chloride 98 mmol/L (98-107); Glucose 290 mg/dL (74-106); Potassium 4.3 mmol/L (3.5-5.1); Sodium 137 mmol/L (136-145); TSH (W/Ref FT4) 0.69 uIU/mL (0.36-3.74); Total Protein 7.2 g/dL (6.4-8.2)
[2021-09-05 20:01] LABS: Salicylate < 2.8 mg/dL (<2.8)
[2021-09-05 20:02] LABS: Acetaminophen < 2 ug/mL (10-30)
[2021-09-05 20:13] LABS: Bacteria Many HPF (Negative); C & S Indicated? Yes; Crystals Negative HPF (Negative); Epithelial Cells Moderate HPF (Negative); Mucus Negative (Negative); RBC 0-2 HPF (0-2); WBC 20-50 HPF (0-5)
[2021-09-05 20:14] LABS: ETHANOL BLOOD < 3.0 mg/dL (<10)
[2021-09-05 20:15] LABS: *AMPHETAMINES SCREEN URINE Negative (Negative); *BARBITURATES SCREEN URINE Negative (Negative); *BENZODIAZEPINES SCREEN URINE Negative (Negative); Cannabinoids THC Negative (Negative); Cocaine Screen,Urine Negative (Negative); METHADONE URINE SCREEN Negative (Negative); OPIATES URINE SCREEN Negative (Negative)
[2021-09-05 20:16] LABS: Tricyclic Antidepressants Negative (Negative)
[2021-09-05] MEDS: LORazepam 1 MG TAB PO (21:29)
[2021-09-05] MEDS: Mirtazapine 15 MG TAB 45 MG PO (21:30)
[2021-09-05] MEDS: Melatonin 3 MG TAB 9 MG PO (21:31)
[2021-09-05] MEDS: Prazosin 5 MG CAP PO (21:31)
[2021-09-05] MEDS: Cephalexin 500 MG CAP PO (22:11)
[2021-09-06 00:06] LABS: Source Nasal/Nares
[2021-09-06 01:07] LABS: COVID-19 PCR Negative (Negative)
[2021-09-06 05:15] VITALS: BP 125/85; PULSE 87; RESP 16; O2SAT 93
[2021-09-06] MEDS: Omeprazole 20 MG CAPCR 40 MG PO (07:44)
[2021-09-06] MEDS: Sennosides/Docusate Sodium TAB 1 TAB PO (08:39)
[2021-09-06] MEDS: guaiFENesin 600 MG TABCR PO (08:40)
[2021-09-06] MEDS: Atorvastatin 40 MG TAB PO (08:40)
[2021-09-06] MEDS: Aspirin 81 MG CHEW PO (08:41)
[2021-09-06] MEDS: Ferrous Sulfate 325 MG TAB PO (08:41)
[2021-09-06] MEDS: Cephalexin 500 MG CAP PO (08:42)
[2021-09-06] MEDS: Metoprolol CR 25 MG TABCR PO (08:42)
[2021-09-06] MEDS: Pregabalin 50 MG CAP PO ×2 (08:42→14:44)
[2021-09-06] MEDS: Loratidine 10 MG TAB PO (08:42)
[2021-09-06] MEDS: metFORMIN 500 MG TAB 1000 MG PO ×2 (08:42→17:01)
[2021-09-06] MEDS: Lisinopril 5 MG TAB PO (08:42)
[2021-09-06] MEDS: Mometasone 220 MCG 14 DOSE INHALER 1 PUFF IH (08:43)
[2021-09-06] MEDS: Venlafaxine 150 MG CAPCR PO (08:43)
[2021-09-06] MEDS: Venlafaxine 75 MG CAPCR PO (08:43)
[2021-09-06] MEDS: rOPINIRole 1 MG TAB 2 MG PO ×2 (09:24→14:44)
[2021-09-06] MEDS: Insulin REGULAR-Human 100 UNITS/ML UNIT 80 UNITS SC (11:00)
[2021-09-06 11:11] LABS: Anion Gap 8.4 mmol/L (3-11); BUN 19 mg/dL (7-18); CO2 26.6 mmol/L (21.0-32.0); Calcium 9.5 mg/dL (8.5-10.1); Chloride 97 mmol/L (98-107); Estimated GFR 57.78 (mL/min/1.73m2); Potassium 4.9 mmol/L (3.5-5.1); Sodium 132 mmol/L (136-145)
[2021-09-06 11:14] LABS: Glucose 465 mg/dL (74-106)
--- NOTE | 2021-09-06 16:53 | CMPROGNOTE_ITS ---
- If Service Date Differs Date of service: 09/06/21 Time of Service: 16:53 Care Management Progress Note NATALYA spoke to Micheline Bolaños, [facility] screener and PEDIATRIC ANESTHESIOLOGIST point who reported the following: Tanya Herman has been attempting to discharge Josy for months. She was sent by EMS to [facility] who Micheline reports turned her away. She was then brought back to [facility] who would not take her and directed EMS to [facility]. NATALYA reviewed May 2021 [facility] visit with Micheline in which Josy was cleared from requiring inpatient hospitalization due to chronic SI. Micheline reported she screened Josy today who stated she was suicidal and wanting voluntary placement but that this was a chronic issue. Micheline [facility] screener validated that Josy was sent to [facility], out of area because of pressuring from [facility] and affirmed this was chronic symptoms of BPD, not requiring inpatient stay. Josy presented to [facility] from [facility] in May 2021 four days after being accepted to [facility] from [facility] where she had been for four months. Please refer to notes from that stay for further information. NATALYA spoke with [facility] (Assisted Living Facility) at [facility] manager endoscopy who confirmed that Francisco Timothy-[employer] [phone] did not want Josy returning. She also reported that [facility] has been advocating for increased mental health supports for Josy without success. CM encouraged outreach to patient advocate agency. CM reviewed legalities of sending patient out of area, as well as Josy's rights of remaining in her home. CM notified of patient return due to chronic BPD with SI features; not requiring inpatient care. As well, CM encouraged co nnection with local team in [place] for increased service support and treatment planning.
--- NOTE | 2021-09-06 16:53 | PDOC.ERCMPRO ---
- If Service Date Differs Date of service: 09/06/21 Time of Service: 16:53 Care Management Progress Note NATALYA spoke to Micheline Bolaños, [facility] screener and CERTIFIED REAL ESTATE APPRAISER point who reported the following: Tanya Herman has been attempting to discharge Josy for months. She was sent by EMS to [facility] who Micheline reports turned her away. She was then brought back to [facility] who would not take her and directed EMS to [facility]. NATALYA reviewed May 2021 [facility] visit with Micheline in which Josy was cleared from requiring inpatient hospitalization due to chronic SI. Micheline reported she screened Josy today who stated she was suicidal and wanting voluntary placement but that this was a chronic issue. Micheline [facility] screener validated that Josy was sent to [facility], out of area because of pressuring from [facility] and affirmed this was chronic symptoms of BPD, not requiring inpatient stay. Josy presented to [facility] from [facility] in May 2021 four days after being accepted to [facility] from [facility] where she had been for four months. Please refer to notes from that stay for further information. NATALYA spoke with [facility] (Assisted Living Facility) at [facility] manager media relations who confirmed that Francisco Timothy-Sleep Manager [phone] did not want Josy returning. She also reported that [facility] has been advocating for increased mental health supports for Josy without success. CM encouraged outreach to patient advocate agency. CM reviewed legalities of sending patient out of area, as well as Josy's rights of remaining in her home. CM notified of patient return due to chronic BPD with SI features; not requiring inpatient care. As well, CM encouraged connection with local team in [place] for increased service support and treatment planning.
[2021-09-06] MEDS: LORazepam 1 MG TAB PO (17:28)
[2021-09-06 18:23] VITALS: BP 120/72; PULSE 87; RESP 16; O2SAT 94
== END 2021-09-06 18:13 | disposition other institution (70) ==
PROVIDERS: Registered Nurse Emergency; Student in an Organized Health Care Education/Training Program; Emergency Provider Emergency Medicine; PCP Student in an Organized Health Care Education/Training Program
DX: F32.9 Major depressive disorder, single episode, unspecified (principal); F60.3 Borderline personality disorder; Z79.4 Long term (current) use of insulin; R45.851 Suicidal ideations; Z79.899 Other long term (current) drug therapy
CPT/HCPCS: 36416; 80048; 80053; 80307; 82805; 82962; 87077; 87635; 96372; 99284; 99285; 80320; 80329; 81003; 81015; 84443; 85025; 87086; 87186

== ENCOUNTER 2023-01-06 12:51 | Emergency (ER) | payer MEDICARE, MEDICAID, SELFPAY ==
--- NOTE | 2023-01-06 12:45 | RT.EKG_ITS ---
APPROVED REPORT Exam: Resting ECG Reason for Exam: Chest pain Patient Location: E HR:94 bpm ECG Measurements Heart Rate 94 AXIS UT 171 P 46 QRSd 93 QRS 113 QT 343 T 31 QTc 429 Conclusion Sinus rhythm...normal P axis, V-rate 60- 99 Right axis deviation...QRS axis (100,269)
[2023-01-06 12:52] VITALS: BP 147/81; PULSE 94; RESP 20; O2SAT 96
--- NOTE | 2023-01-06 13:07 | ED.GENADUL_ITS ---
Discharge Plan Disposition Patient Disposition: [facility]) Discharge Details Chief Complaint: Chest Pain Clinical Impression: Chest pain, Hyperglycemia due to diabetes mellitus, Poorly controlled diabetes mellitus Primary Care Provider: Deya Cagle ED Provider: Cristel Biggs Home Meds and New Rx's Prescriptions: No Action trazodone 100 mg Tablet 200 mg PO DAILY aripiprazole [Abilify] 2 mg Tablet 2 mg PO DAILY venlafaxine 225 mg Tablet Extended Release 24hr 225 mg PO DAILY aspirin 81 mg Tablet 81 mg PO DAILY albuterol sulfate 90 mcg/actuation Hfa Aerosol Inhaler 2 puff INHALATION QID PRN PRN fluticasone propionate 110 mcg/actuation Hfa Aerosol Inhaler 1 puff INHALATION BID ferrous sulfate 324 mg (65 mg iron) Tablet,Delayed Release (Dr/Ec) 324 mg PO DAILY fluticasone propionate 50 mcg/actuation [place],Suspension 1 spray INTRANASAL DAILY melatonin 3 mg Tablet 9 mg PO HS PRN Patient Comments: not on patient's medication list magnesium chloride 64 mg Tablet Extended Release 128 mg PO TID Patient Comments: not on patient's medication list ascorbic acid (vitamin C) [Vitamin C] 500 mg Tablet 500 mg PO DAILY ropinirole 2 mg Tablet 2 mg PO TID Patient Comments: not on patient's medication list lidocaine 5 % Adhesive Patch,Medicated 2 patch TOPICAL DAILY lisinopril 5 mg Tablet 5 mg PO DAILY loratadine 10 mg Tablet 10 mg PO DAILY Patient Comments: not on patient's medication list venlafaxine 75 mg Tablet Extended Release 24hr 225 mg PO QAM Trulicity 1.5 mg/0.5 mL Pen Injector 1.5 mg SUBCUT QWEEK [employer]ovig Autoinjector 140 mg/mL Auto-Injector 140 mg SUBCUT QMONTH metformin 1,000 mg Tablet 1,000 mg PO BID Patient Comments: not on patient's medication list acetaminophen [Tylenol] 325 mg Tablet 650 mg PO QID PRN polyethylene glycol 3350 17 gram Powder In Packet 17 g PO DAILY Patient Comments: not on patient's medication list omeprazole 40 mg Capsule,Delayed Release(Dr/Ec) 40 mg PO DAILY Patient Comments: not on patient's medication list methocarbamol 750 mg Tablet 750 mg PO QID PRN Patient Comments: not on patient's medication list mirtazapine 45 mg Tablet 45 mg PO QHS Patient Comments: not on patient's medication list hydroxyzine HCl 25 mg Tablet 25 mg PO TID PRN lorazepam 1 mg Tablet 1 mg PO QHS lorazepam 1 mg Tablet 1 mg PO BID PRN MDD 3 PRN (Reason: Anxiety) ondansetron 4 mg Tablet,Disintegrating 4 mg PO Q6H PRN Patient Comments: not on patient's medication list nabumetone 500 mg Tablet 500 mg PO BID Patient Comments: not on patient's medication list pregabalin 50 mg Capsule 50 mg PO TID Patient Comments: not on patient's medication list guaifenesin [Mucinex] 600 mg Tablet Extended Release 12hr 600 mg PO BID metoprolol succinate 25 mg Capsule,Sprinkle,Er 24hr 25 mg PO DAILY Patient Comments: not on patient's medication list atorvastatin 40 mg Tablet 40 mg PO DAILY sennosides-docusate sodium [Senexon-S] 8.6-50 mg Tablet 1 tab PO DAILY prazosin 5 mg Capsule 5 mg PO QHS Humulin R U-500 (Conc) Kwikpen 500 unit/mL (3 mL) Insulin Pen 85 unit SUBCUT QACLUNCH Rx Instructions: 30 min before lunch Humulin R U-500 (Conc) Insulin 500 unit/mL Solution 65 unit subcut QACDINNER Rx Instructions: 30 min before juliane diclofenac sodium 1 % Gel 2 g TOPICAL QID PRN (Reason: Pain) Rx Instructions: apply to single elbow, wrist or hand; for hand includes palm/fingers/back of hand insulin regular hum U-500 conc 500 unit/mL (3 mL) Insulin Pen 65 unit SUBCUT QACBREAK rizatriptan 10 mg Tablet 0 mg PO .COMPLEX Rx Instructions: take 1 tab at onset of headache; if no relief may repeat 1 tab after at least 2 hrs; limit to 2 days/week Discharge Instructions Instructions: Chest Pain (ED), Diabetic Hyperglycemia (ED) Additional Instructions: Monitor your blood sugar. Follow-up with your primary care provider and return here for any new or worrisome symptoms. Ask your primary care provider about a referral to cardiology. Discharge Data Discharge Physician: Cristel Biggs HPI <Rigo Anderson MD - Last Filed: 01/06/23 13:09> General Date/Time Provider Initiated Documentation: 01/06/23 13:03 . HPI Narrative: During a group session therapy she developed some palpitations and some chest pain. She states she felt somewhat diaphoretic. Mildly associated with shortness of breath therefore EMS was activated. No fevers no chills. No nausea no vomiting. No abdominal pain. No shortness of breath while in the emergency department. Related Data Home Medications Medication Instructions Recorded Confirmed albuterol sulfate 90 mcg/actuation 2 puff inhalation QID PRN PRN 06/18/21 01/06/23 aerosol inhaler ascorbic acid (vitamin C) 500 mg 500 mg PO DAILY 06/18/21 01/06/23 tablet (Vitamin C) aspirin 81 mg tablet 81 mg PO DAILY 06/18/21 01/06/23 dulaglutide 1.5 mg/0.5 mL 1.5 mg subcut QWEEK 06/18/21 09/05/21 subcutaneous pen injector ([employer]) erenumab-aooe 140 mg/mL 140 mg subcut QMONTH 06/18/21 01/06/23 subcutaneous auto-injector (Aimovig Autoinjector) ferrous sulfate 324 mg (65 mg 324 mg PO DAILY 06/18/21 01/06/23 iron) tablet,delayed release fluticasone propionate 110 1 puff inhalation BID 06/18/21 01/06/23 mcg/actuation HFA aerosol inhaler fluticasone propionate 50 1 spray intranasal DAILY 06/18/21 01/06/23 mcg/actuation nasal spray,suspension lidocaine 5 % topical patch 2 patch topical DAILY 06/18/21 09/05/21 lisinopril 5 mg tablet 5 mg PO DAILY 06/18/21 01/06/23 loratadine 10 mg tablet 10 mg PO DAILY 06/18/21 09/05/21 magnesium chloride 64 mg 128 mg PO TID 06/18/21 09/05/21 tablet,extended release melatonin 3 mg tablet 9 mg PO HS PRN 06/18/21 09/05/21 metformin 1,000 mg tablet 1,000 mg PO BID 06/18/21 09/05/21 ropinirole 2 mg tablet 2 mg PO TID 06/18/21 09/05/21 venlafaxine 75 mg tablet,extended 225 mg PO QAM 06/18/21 01/06/23 release 24 hr acetaminophen 325 mg tablet 650 mg PO QID PRN 06/19/21 01/06/23 (Tylenol) guaifenesin 600 mg tablet, 600 mg PO BID 06/19/21 09/05/21 extended release 12 hr (Mucinex) hydroxyzine HCl 25 mg tablet 25 mg PO TID PRN 06/19/21 01/06/23 lorazepam 1 mg tablet 1 mg PO BID PRN PRN Anxiety 06/19/21 01/06/23 lorazepam 1 mg tablet 1 mg PO QHS 06/19/21 01/06/23 methocarbamol 750 mg tablet 750 mg PO QID PRN 06/19/21 09/05/21 metoprolol succinate 25 mg capsule 25 mg PO DAILY 06/19/21 09/05/21 sprinkle, ext. release 24 hr mirtazapine 45 mg tablet 45 mg PO QHS 06/19/21 09/05/21 nabumetone 500 mg tablet 500 mg PO BID 06/19/21 09/05/21 omeprazole 40 mg capsule,delayed 40 mg PO DAILY 06/19/21 09/05/21 release ondansetron 4 mg disintegrating 4 mg PO Q6H PRN 06/19/21 09/05/21 tablet polyethylene glycol 3350 17 gram 17 g PO DAILY 06/19/21 09/05/21 oral powder packet pregabalin 50 mg capsule 50 mg PO TID 06/19/21 09/05/21 atorvastatin 40 mg tablet 40 mg PO DAILY 09/05/21 01/06/23 diclofenac sodium 1 % topical gel 2 g topical QID PRN Pain 09/05/21 09/05/21 insulin regular hum U-500 conc 500 65 unit subcut QACDINNER 09/05/21 09/06/21 unit/mL subcutaneous soln (Humulin R U-500 (Concentrated) Insulin) insulin regular hum U-500 conc 500 85 unit subcut QACLUNCH 09/05/21 01/06/23 unit/mL(3 mL) subcut pen (Humulin R U-500 (Conc) Insulin Kwikpen) prazosin 5 mg capsule 5 mg PO QHS 09/05/21 01/06/23 sennosides 8.6 mg-docusate sodium 1 tab PO DAILY 09/05/21 01/06/23 50 mg tablet (Senexon-S) insulin regular hum U-500 conc 500 65 unit subcut QACBREAK 09/06/21 01/06/23 unit/mL(3 mL) subcut pen rizatriptan 10 mg tablet 0 mg PO .COMPLEX 09/06/21 01/06/23 aripiprazole 2 mg tablet (Abilify) 2 mg PO DAILY 01/06/23 01/06/23 trazodone 100 mg tablet 200 mg PO DAILY 01/06/23 01/06/23 venlafaxine 225 mg tablet,extended 225 mg PO DAILY 01/06/23 01/06/23 release 24 hr Allergies Allergy/AdvReac Type Severity Reaction Status Date / Time bee venom protein (honey bee) Allergy Unverified 01/06/23 13:41 canagliflozin Allergy Unverified 01/06/23 13:41 metoclopramide Allergy Unverified 01/06/23 13:41 No Known Drug Allergies Allergy Unverified 06/18/21 21:54 Penicillins Allergy Unverified 01/06/23 13:41 prochlorperazine AdvReac Unverified 01/06/23 13:41 sumatriptan AdvReac Unverified 01/06/23 13:41 General Stated Complaint: Chest Pain ANABELLE: 3 Review of Systems <Rigo Anderson MD - Last Filed: 01/06/23 13:09> Narrative: 10 point review of system is negative unless otherwise specified in HPI PFSH <Rigo Anderson MD - Last Filed: 01/06/23 13:09> All Active Problems (Updated 01/06/23 @ 18:33 by Cristel Biggs MD) Chest pain (Acute) Hyperglycemia due to diabetes mellitus (Acute) Poorly controlled diabetes mellitus (Acute) Medical History Borderline personality disorder Depression Diabetes mellitus Disassociation disorder Post traumatic stress disorder (PTSD) Social History Smoking/Tobacco Use Status: Never Smoking risk assessment performed?: Yes Alcohol Intake: never Drug use: Never Substance use type: does not use Housing: [facility] Additional Social history: pt is a resident at [facility] in [place] Exam <Rigo Anderson MD - Last Filed: 01/06/23 13:09> Narrative Exam Narrative: Awake alert out of 3, no acute distress, calm and cooperative, normocephalic atraumatic, PERRLA EOMI MMM anicteric, supple neck no JVD, but chest is clear to auscultation bilaterally, heart regular with very no murmurs, abdomen soft nondistended nontender, extremities moves all 4 no pitting edema lower extremities, neuro 2-12 grossly intact, psych normal mood and affect Course <Rigo Anderson MD - Last Filed: 01/06/23 13:09> Vital Signs Vital signs: Vital Signs Pulse 94 H 01/06/23 12:52 Respiratory Rate 20 01/06/23 12:52 Blood Pressure 147/81 H 01/06/23 12:52 Pulse Oximetry 96 01/06/23 12:52 Pulse 94 H 01/06/23 12:52 Respiratory Rate 20 01/06/23 12:52 Respiratory Effort Normal, Non-Labored 01/06/23 12:57 Blood Pressure 147/81 H 01/06/23 12:52 Blood Pressure Position Sitting 01/06/23 12:52 Pulse Oximetry 96 01/06/23 12:52 Oxygen Delivery Method Room Air 01/06/23 12:52 Oxygen Flow Rate 0 01/06/23 12:52 Pain Level 5 01/06/23 12:52 <Cristel Biggs MD - Last Filed: 01/06/23 18:33> The patient's repeat blood sugar is much improved. We will discharge her home with outpatient follow-up Sign Out <Rigo Anderson MD - Last Filed: 01/06/23 13:09> Sign Out Data: Sign Out Comment: 57-year-old lady presents to the emergency department with what appears to be atypical chest pain while being at a group session therapy. Initial EKG showed normal sinus rhythm. Normal ST segments and T waves. No signs of ischemia. Initial troponin negative. Patient essentially pain-free here in the emergency department. Patient signed out to my colleague pending second troponin. If this is negative she will be able to be discharged to her longterm[facility] Last updated by Rigo Anderson MD at 01/06/23 16:00
[2023-01-06 13:12] VITALS: RESP 16
--- NOTE | 2023-01-06 13:36 | DI.RAD_ITS ---
Exam(s) XR CHEST 2V PA LATERAL EXAM: XR CHEST 2V PA LATERAL CLINICAL HISTORY: chest pain TECHNIQUE: 2D digital imaging was performed. COMPARISON: No exams were available for comparison FINDINGS: HEART: Normal size. Aorta: Not dilated. PULMONARY VASCULATURE: Normal. LUNGS: Clear. PLEURAL SPACE: No pleural effusion or pneumothorax. BONE:Unremarkable for age. IMPRESSION: No acute abnormality. DATA REPOSITORY: RADIATION DOSE DELIVERED:
[2023-01-06 13:44] LABS: Anion Gap 9.3 mmol/L (3-11); BUN 27 mg/dL (7-18); CO2 25.7 mmol/L (21.0-32.0); CREATININE 1.1 mg/dL (0.55-1.02); Calcium 9.3 mg/dL (8.5-10.1); Chloride 97 mmol/L (98-107); Estimated GFR 59.34 (mL/min/1.73m2); Glucose 393 mg/dL (74-106); Potassium 5.5 mmol/L (3.5-5.1); Sodium 132 mmol/L (136-145)
[2023-01-06 13:46] LABS: Troponin I < 50 ng/L (<or=60)
[2023-01-06 16:23] LABS: Troponin I < 50 ng/L (<or=60)
[2023-01-06] MEDS: Insulin REGULAR-Human 100 UNITS/ML UNIT 10 UNITS IV (16:51)
[2023-01-06] MEDS: Normal Saline 1,000 ML 1000 ML IV (16:51)
--- NOTE | 2023-01-06 16:54 | NUR.NOTE ---
Pt states, My sugar normally runs 300-600. Nursing Note:
== END 2023-01-06 18:56 | disposition skilled nursing facility (03) ==
PROVIDERS: Emergency Medicine; Emergency Provider Emergency Medicine Emergency Medical Services; PCP Student in an Organized Health Care Education/Training Program
DX: R07.89 Other chest pain (principal); R61 Generalized hyperhidrosis; E11.65 Type 2 diabetes mellitus with hyperglycemia; Z79.4 Long term (current) use of insulin; Z79.82 Long term (current) use of aspirin
CPT/HCPCS: 80048; 82962; 93005; 99284; 71046; 84484; 93010; 99283